=== PATIENT | male | born 1940 | race Caucasian/White ===

== ENCOUNTER 2018-01-19 08:18 | Emergency (ER) | payer MEDICARE ==
[2018-01-19 08:45] VITALS: BP 122/56
--- NOTE | 2018-01-19 08:56 | UC ---
Respiratory Complaint HPI - HPI Summary HPI Summary: cough x 4 days cough is productive with yellow sputum worse with deep breathing, + nasal congestion, pnd, no fever, + chills + sob due to COPD , no chest pain - History of Current Complaint Chief Complaint: UCGeneralIllness Stated Complaint: COUGH/COLD SYMPTOMS Time Seen by Provider: 01/19/18 08:35 Hx Obtained From: Patient Onset/Duration: Sudden Onset, Lasting Days - 4, Still Present Timing: Constant Severity Initially: Moderate Severity Currently: Moderate Pain Intensity: 0 Character: Cough: Productive - yellow sputum Aggravating Factors: Exertion, Deep Breaths Alleviating Factors: Nothing Associated Signs And Symptoms: Positive: Dyspnea, Chills, Wheezing, URI, Nasal Congestion. Negative: Fever, Pleuritic Chest Pain, Dizziness, Calf Pain, Calf Swelling - Allergies/Home Medications Allergies/Adverse Reactions: Allergies Allergy/AdvReac Type Severity Reaction Status Date / Time No Known Allergies Allergy Verified 01/19/18 08:42 Home Medications: Home Medications Albuterol 2.5MG/3ML (0.083%)* [Ventolin 2.5 MG/3 ML NEB.KRYSTIN*] 2.5 mg INH Q6H PRN 01/19/18 [History Confirmed 01/19/18] Aspirin EC TAB* [Ecotrin EC Low Dose 81 MG*] 81 mg PO DAILY 01/19/18 [History Confirmed 01/19/18] Atorvastatin* [Lipitor*] 40 mg PO DAILY 01/19/18 [History Confirmed 01/19/18] Docusate CAP* [Colace Cap*] 100 mg PO DAILY 01/19/18 [History Confirmed 01/19/18 ] Eye Vitamin 1 tab PO BID 01/19/18 [History Confirmed 01/19/18] Fluticasone/Vilanterol MDI(NF) [Breo Ellipta MDI (NF)] 1 puff INH DAILY [History Confirmed 01/19/18] Lisinopril/HCTZ 10/12.5(NF) [Zestoretic 10/12.5(NF)] 1 tab PO DAILY 01/19/18 [ History Confirmed 01/19/18] Montelukast Sodium TAB* [Singulair TAB*] 10 mg PO BEDTIME 01/19/18 [History Confirmed 01/19/18] Multivitamin [Multivitamins] 1 each PO DAILY 01/19/18 [History Confirmed ] Naproxen Sodium [Aleve] 440 mg PO DAILY 01/19/18 [History Confirmed 01/19/18] Nebivolol TAB (NF) [Bystolic TAB (NF)] 5 mg PO DAILY 01/19/18 [History Confirmed 01/19/18] Omeprazole CAP* [Prilosec CAP* 20 MG] 20 mg PO DAILY 01/19/18 [History Confirmed 01/19/18] PARoxetine HCL TAB* [Paxil TAB*] 10 mg PO DAILY 01/19/18 [History Confirmed 05/01] Tamsulosin CAP* [Flomax CAP*] 0.4 mg PO DAILY 01/19/18 [History Confirmed ] Umeclidinium [place] [Incruse Ellipta] 62.5 mcg IH DAILY 01/19/18 [History Confirmed 01/19/18] metFORMIN* [Glucophage 500 MG TAB *] 500 mg PO BID 01/19/18 [History Confirmed 01/19/18] PMH/Surg Hx/FS Hx/Imm Hx Endocrine History: Diabetes Cardiovascular History: Hypertension Respiratory History: COPD - Surgical History Surgical History: Yes Surgery Procedure, Year, and Place: Toe. Hand. Vasectomy - Family History Known Family History: Positive: Hypertension, Diabetes - Social History Alcohol Use: Daily Alcohol Amount: 2-3 whiskey drinks Substance Use Type: None Smoking Status (MU): Former Smoker Review of Systems Constitutional: Chills, Fatigue Skin: Negative Eyes: Negative ENT: Nasal Discharge Respiratory: Shortness Of Breath, Cough Cardiovascular: Negative Is Patient Immunocompromised?: No All Other Systems Reviewed And Are Negative: Yes Physical Exam Triage Information Reviewed: Yes Appearance: Well-Appearing, No Pain Distress, Well-Nourished Vital Signs: Initial Vital Signs Temp 97.5 F 01/19/18 08:35 Pulse 79 01/19/18 08:35 Resp 20 01/19/18 08:35 BP 122/56 01/19/18 08:35 Pulse Ox 97 01/19/18 08:35 Vital Signs Reviewed: Yes Eyes: Positive: Conjunctiva Clear ENT: Positive: Normal ENT inspection, Hearing grossly normal, Pharynx normal, Nasal congestion Neck exam: Normal Neck: Positive: Supple, Nontender, No Lymphadenopathy Respiratory: Positive: Chest non-tender, Normal breath sounds, Decreased breath sounds. Negative: No accessory muscle use, Respiratory distress, Accessory muscle use Cardiovascular: Positive: RRR, No Murmur, Pulses Normal Psychological Exam: Normal Skin Exam: Normal UC Diagnostic Evaluation - Laboratory O2 Sat by Pulse Oximetry: 97 Respiratory Course/Dx - Differential Dx/Diagnosis Provider Diagnoses: bronchitis Discharge - Sign-Out/Discharge Documenting (check all that apply): Discharge/Admit/Transfer - Discharge Plan Condition: Stable Disposition: HOME Prescriptions: Codeine Phosphate/Guaifenesin [Cheratussin AC] 10 ml PO Q8H #120 ml MDD 30 ml predniSONE [Prednisone] 20 mg PO BID #14 tablet Patient Education Materials: Acute Bronchitis (ED) Referrals: Willian Gentile MD [Primary Care Provider] - 7 Days - Billing Disposition and Condition Condition: STABLE Disposition: HOME
== END 2018-01-19 09:04 | disposition home or self-care (01) ==
LOC: UCCORT 08:18
DX: J44.9 Chronic obstructive pulmonary disease, unspecified (principal); E11.9 Type 2 diabetes mellitus without complications; Z79.84 Long term (current) use of oral hypoglycemic drugs; I10 Essential (primary) hypertension; Z87.891 Personal history of nicotine dependence
CPT/HCPCS: 99202; G0463

== ENCOUNTER 2018-02-17 15:58 | Emergency (ER) | payer MEDICARE ==
--- NOTE | 2018-02-17 18:02 | UC ---
Knee Pain HPI - HPI Summary HPI Summary: 77 yo male was walking across the kitchen today when he felt and heard a pop from his left knee Now unable to ambulate unless he uses a cane no prior hx of knee problems best when straight hurts to bend - History of Current Complaint Chief Complaint: UCLowerExtremity Stated Complaint: LEFT LEG PAIN Time Seen by Provider: 02/17/18 17:38 Hx Obtained From: Patient Onset/Duration: Sudden Onset, Lasting Hours Severity Initially: Severe Severity Currently: Severe Pain Intensity: 10 Pain Scale Used: 0-10 Numeric Character: Dull, Aching Aggravating Factor(s): Movement, Weight Bearing Alleviating Factor(s): Rest Associated Signs And Symptoms: Positive: Swelling Able to Bear Weight: Yes - with severe pain - Allergies/Home Medications Allergies/Adverse Reactions: Allergies Allergy/AdvReac Type Severity Reaction Status Date / Time No Known Allergies Allergy Verified 02/17/18 16:32 PMH/Surg Hx/FS Hx/Imm Hx Endocrine History: Diabetes Cardiovascular History: Hypertension - Surgical History Surgical History: Yes Surgery Procedure, Year, and Place: Toe. Hand. Vasectomy - Family History Known Family History: Positive: Hypertension, Diabetes - Social History Alcohol Use: Daily Alcohol Amount: 2-3 whiskey drinks Substance Use Type: None Smoking Status (MU): Former Smoker Review of Systems Constitutional: Negative Skin: Negative Eyes: Negative ENT: Negative Respiratory: Negative Cardiovascular: Negative Gastrointestinal: Negative Genitourinary: Negative Motor: Negative Neurovascular: Negative Musculoskeletal: Arthralgia Neurological: Negative Psychological: Negative Is Patient Immunocompromised?: No All Other Systems Reviewed And Are Negative: Yes Physical Exam Triage Information Reviewed: Yes Appearance: Well-Appearing, No Pain Distress, Well-Nourished Vital Signs: Initial Vital Signs Temp 98.6 F 02/17/18 16:29 Pulse 80 02/17/18 16:29 Resp 18 02/17/18 16:29 BP 115/84 02/17/18 16:29 Pulse Ox 96 02/17/18 16:29 Vital Signs Reviewed: Yes Eyes: Positive: Conjunctiva Clear ENT: Positive: Hearing grossly normal. 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 joint loose body/? meniscal tear Discharge - Sign-Out/Discharge Documenting (check all that apply): Discharge/Admit/Transfer - Discharge Plan Condition: Stable Disposition: HOME Patient Education Materials: Knee Pain (ED), Knee Immobilizer (ED) Referrals: Christopher Thompson MD [Medical Doctor] - As Soon As Possible Willian Gentile MD [Primary Care Provider] - Additional Instructions: your XR showed moderated arthritis you may have a joint mouse or torn cartilage knee immobilizer - Billing Disposition and Condition Condition: STABLE Disposition: Home
--- NOTE | 2018-02-17 18:21 | RAD ---
Indication: Left knee pain. 4 views of left knee demonstrates joint space narrowing with subchondral irregularity in the lateral femoral condyle. Atherosclerosis of the popliteal artery is noted. Degenerative changes of the patellofemoral joint is noted. 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
[2018-02-17 18:44] VITALS: BP 146/57
== END 2018-02-17 18:51 | disposition home or self-care (01) ==
LOC: UCCORT 15:58
DX: M25.562 Pain in left knee (principal); M17.12 Unilateral primary osteoarthritis, left knee; E11.9 Type 2 diabetes mellitus without complications; I10 Essential (primary) hypertension; Z87.891 Personal history of nicotine dependence
CPT/HCPCS: 99213; G0463